=== PATIENT | female | born 1995 | race Caucasian/White ===

== ENCOUNTER 2022-02-14 20:26 | Emergency (ER) | payer OTHER ==
[2022-02-14 20:33] VITALS: TEMP 97.5
[2022-02-14] MEDS ORDERED: METOCLOPRAMIDE 5 MG/ML 2 ML VIAL IVP STA (22:44)
[2022-02-14] MEDS ORDERED: KETOROLAC 15 MG/ML 1 ML VIAL IVP STA (22:44)
[2022-02-14] MEDS ORDERED: diphenhydrAMINE 50 MG/ML 1 ML VIAL IVP STA (22:44)
[2022-02-14] MEDS ORDERED: SODIUM CHLORIDE 0.9% 1,000 ML IV ONE (22:45)
--- NOTE | 2022-02-14 22:47 | ED ---
General Adult HPI - General Chief complaint: Headache Stated complaint: Headache Time Seen by Provider: 02/14/22 22:39 Source: patient, RN notes reviewed Mode of arrival: ambulatory Limitations: no limitations - History of Present Illness Initial comments: This is a pleasant 26-year-old female with history of migraine headaches. She presents to the emergency department complaining of a headache which is going on for 2 or 3 days. She is complaining of throbbing headache the left temporal area. This is where she normally gets her migraines. Current level of pain is 7 out of 10 in intensity. She states that she took Imitrex twice today and her regular physician gave her a shot of emgality. Patient states she also takes Inderal. Patient states that she previously had a headache which lasted 2 days. Denies fever or chills. No stiff neck. No focal neurologic impairment. No headache, no fever or chills, no changes in vision or hearing, no sore throat or difficulty with speech, no neck pain, no chest pain or shortness of breath, no abdominal pain, no nausea or vomiting, no changes in urination or bowel movements, no numbness or tingling, no extremity pain, no skin rashes or lesions. Denies chance of - Related Data Allergies Allergy/AdvReac Type Severity Reaction Status Date / Time No Known Allergies Allergy Verified 02/14/22 20:33 Review of Systems ROS Statement: Those systems with pertinent positive or pertinent negative responses have been documented in the HPI. ROS Other: All systems not noted in ROS Statement are negative. Past Medical History Past Medical History: Thyroid Disorder History of Any Multi-Drug Resistant Organisms: None Reported Past Surgical History: No Surgical Hx Reported Past Psychological History: Anxiety Smoking Status: Never smoker Past Alcohol Use History: Occasional Past Drug Use History: None Reported General Exam - General Exam Comments Initial Comments: Healthy-appearing 26-year-old female in no acute distress. Patient does not appear to be ill or toxic. Limitations: no limitations General appearance: alert, in no apparent distress Head exam: Present: atraumatic, normocephalic, normal inspection Eye exam: Present: normal appearance, PERRL, EOMI. Absent: scleral icterus, conjunctival injection, periorbital swelling ENT exam: Present: normal exam, normal oropharynx, mucous membranes moist, TM's normal bilaterally. Absent: mucous membranes dry, normal external ear exam Neck exam: Present: normal inspection, full ROM, other (No meningeal signs). Absent: tenderness, meningismus, lymphadenopathy Respiratory exam: Present: normal lung sounds bilaterally. Absent: respiratory distress, wheezes, rales, rhonchi, stridor Cardiovascular Exam: Present: regular rate, normal rhythm, normal heart sounds. Absent: systolic murmur, diastolic murmur, rubs, gallop, clicks GI/Abdominal exam: Present: soft, normal bowel sounds. Absent: distended, tenderness, guarding, rebound, rigid Extremities exam: Present: normal inspection, full ROM, normal capillary refill. Absent: tenderness, pedal edema, joint swelling, calf tenderness Back exam: Present: normal inspection Neurological exam: Present: alert, oriented X3, CN II-XII intact, normal gait. Absent: altered, abnormal gait, motor sensory deficit, reflexes normal Psychiatric exam: Present: normal affect, normal mood Skin exam: Present: warm, dry, intact, normal color. Absent: rash Course Vital Signs 02/14/22 20:31 Temperature 97.5 F L Pulse Rate 66 Respiratory 18 Rate Blood Pressure 130/92 O2 Sat by Pulse 97 Oximetry - Reevaluation(s) Reevaluation #1: 02/15/22 00:30 Medical record is reviewed Symptoms are improved--patient still complaining of a 4 out of 10 headache. Will order subsequent second third line options. Patient is informed of results and questions answered Patient in no distress Reevaluation #2: 02/15/22 03:03 Medical record is reviewed Symptoms are improved here in the emergency department Patient is informed of results and questions answered Patient in no distress Headache resolved, Repeat neurological exam is unchanged, patient neurologically intact Medical Decision Making - Medical Decision Making Patient was improved after the initial headache cocktail. I did add on adjunctive therapies. Patient's headache was resolved. We'll give the patient follow-up with neurology. Patient does have a primary care physician she can follow up with as well. Patient was in no distress at discharge. Neurologically intact. The case was discussed in detail with ED attending physician. Presentation, findings, treatment plan discussed in detail. Patient was told to return to the ER for any signs or symptoms worsen. Told to return immediately if any other problems arise. All questions answered. Treatment plan discussed. Patient in agreement Every effort has been made to ensure accuracy of this dictation. However, due to the limitations of electronic medical records and dictation devices, errors in charting still occur. Disposition Clinical Impression: Migraine headache Disposition: HOME SELF-CARE Condition: Stable Instructions (If sedation given, give patient instructions): Acute Headache (ED), Migraine Headache (ED) Is patient prescribed a controlled substance at d/c from ED?: No Referrals: Gaby Garcia MD [REFERRING] - 1-2 days Time of Disposition: 03:04
[2022-02-15] MEDS ORDERED: DEXAMETHASONE SOD PHOSPHATE 10 MG/ML 1 ML VIAL IVP STA (00:29)
[2022-02-15] MEDS ORDERED: MAGNESIUM SULFATE-D5W PMX 1 GM in DEXTROSE/WATER 1 100ML.BAG IVPB ONE (00:29)
[2022-02-15] MEDS ORDERED: VALPROATE SODIUM 500 MG in SODIUM CHLORIDE 0.9% 100 ML IVPB ONE (00:45)
[2022-02-15 03:42] VITALS: BP 134/68; PULSE 79; RESP 18
== END 2022-02-15 03:49 | disposition home or self-care (01) ==
LOC: EDBD → EC 20:26
DX: G43.909 Migraine, unspecified, not intractable, without status migrainosus (principal)
CPT/HCPCS: 99283; 96365; 96366 ×2; 96368; 96375 ×4; 96361; J1200; J1100; J2765; J3475; J1885